=== PATIENT | female | born 1935 | race Caucasian/White ===

== ENCOUNTER 2018-03-25 17:09 | Inpatient (IN) | payer OTHER, BC ==
--- OUTSIDE RECORDS SUMMARY | 2018-03-25 17:12 | XMS REPORT ---
:1935 [facility] Address [address] [place] [id number] Care Team Providers Name Role Phone CARMELA, DR ESQUIVEL Unavailable Unavailable LUCIANA, DR DOZIER Unavailable Unavailable Problems This patient has no known problems. Allergies, Adverse Reactions, Alerts This patient has no known allergies or adverse reactions. Medications This patient has no known medications. Results Test Description Test Time Test Comments Text Results Atomic Results Result Comments CBC WITH MORPHOLOGY 2017-01-23 08:25:00 Test Item Value Reference Range Comments WBC (test code=WBC) 6.7 10\S\3/uL 4.5-11.0 RBC (test code=RBC) 4.51 10\S\6/uL 3.80-5.80 HGB (test code=HBG) 11.2 g/dL 12.0-15.5 HCT (test code=HCT) 37.3 % 35.0-44.0 MCV (test code=MCV) 82.7 fL 81.0-99.0 MCH (test code=MCH) 24.8 pg 27.0-31.0 MCHC (test code=MCHC) 30.0 g/dL 32.0-36.0 RDW (test code=RDW) 20.9 % 11.5-14.5 PLT (test code=PLT) 199 10\S\3/uL 130-400 MPV (test code=MPV) 11.3 fL 9.4-12.4 NEUTROP # (test code=NE#) 5.1 10\S\3/uL 1.6-8.0 LYMPH # (test code=LY#) 0.8 10\S\3/uL 1.1-3.5 MONOCYTE # (test code=MO#) 0.7 10\S\3/uL 0.0-1.1 EOSINOPH # (test code=EO#) 0.1 10\S\3/uL 0.0-0.7 BASOPHIL # (test code=BA#) 0.0 10\S\3/uL 0.0-0.3 IG # (test code=IG#) 0.02 10\S\3/uL 0.00-0.06 NRBC # (test code=NRBC#) 0.00 10\S\3/uL 0.00-0.01 NEUTROPH % (test code=NE%) 75.7 % 35.0-73.0 LYMPH % (test code=LY%) 12.4 % 20.0-55.0 MONO % (test code=MO%) 9.7 % 2.5-10.0 EOSINOPH % (test code=EO%) 1.5 % 0.0-5.0 BASOPHIL % (test code=BA%) 0.4 % 0.0-2.0 IG % (test code=IG%) 0.3 % 0.0-0.8 NRBC% (test code=NRBC%) 0.0 % 0.0-0.2 PLT EST (test code=PLTEST) ADEQUATE ADEQUATE PLT MORPH (test code=PLTMOR) NORMAL (1.5-3 um) NORMAL ANISO (test code=ANISO) 1+ NONE HYPOCHROM (test code=HYPOC) 1+ NONE POLYCHROM (test code=POLY) 1+ NONE OVALOCYTES (test code=OVA) 2+ NONE U/S VENOUS DOPPLER LT UPPER [id number] 12:50:54Left upper extremity venous DopplerLocation code: [id number] history: Swelling, rule out DVTTechnique: Grayscale, color, and duplex spectral analysis sonography of thedeep veins of the left upper extremity was performed. Findings: Normal color-flow and Doppler signal is present within the leftjugular,subclavian, axillary, brachial, basilic , cephalic, radial, and ulnarveins.Impression: Negative for left upper extremity DVT.VALPROIC ACID (DEPAKENE)2017-01-20 21:43:00 Test Item Value Reference Range Comments VALP ACID (test code=95A) 65.0 ug/mL 50.0-100.0 POTASSIUM [id number] 06:07:00 Test Item Value Reference Range Comments POTASSIUM (test code=01B) 4.9 mmol/L 3.6-5.1 XR CHEST 1 [id number] 12:13:41Portable AP chest, 1 viewLocation Code: [id number] HISTORY: COPD exacerbationCOMPARISON: 12/30/2016COMMENT: The lungs are clear and well inflated. The costophrenic angles are sharp. Thecardiomediastinalsilhouette is stable. Left chest pacer/AICD remains.. Thebones are intact.IMPRESSION: Stable cardiomegaly with otherwise no acute abnormality.BASIC METABOLIC [id number] 06:00:00 Test Item Value Reference Range Comments GLUCOSE (test code=06D) 127 mg/dL 75-100 SODIUM (test code=01A) 144 mmol/L 136-145 POTASSIUM (test code=01B) 4.5 mmol/L 3.6-5.1 CHLORIDE (test code=04A) 105 mmol/L 98-107 CO2 (test code=02A) 30 mmol/L 22-32 ANION GAP (test code=ANG) 13.5 mmol/L BUN (test code=05D) 21 mg/dL 7-18 CREATININE (test code=03E) 0.8 mg/dL 0.4-1.1 BUN/CREA R (test code=BCR) 28 12-20 CALCIUM (test code=09D) 8.6 mg/dL 8.3-9.5 [id number] 05:54:00 Test Item Value Reference Range Comments MAGNESIUM (test code=48A) 2.4 mg/dL 1.8-2.4 HEMOGRAM (CBC WITHOUT DIFFERENTIAL)2017-01-10 05:40:00 Test Item Value Reference Range Comments WBC (test code=WBC) 5.9 10\S\3/uL 4.5-11.0 RBC (test code=RBC) 4.84 10\S\6/uL 3.80-5.80 HGB (test code=HBG) 11.6 g/dL 12.0-15.5 HCT (test code=HCT) 38.9 % 35.0-44.0 MCV (test code=MCV) 80.4 fL 81.0-99.0 MCH (test code=MCH) 24.0 pg 27.0-31.0 MCHC (test code=MCHC) 29.8 g/dL 32.0-36.0 RDW (test code=RDW) 20.4 % 11.5-14.5 PLT (test code=PLT) 352 10\S\3/uL 130-400 MPV (test code=MPV) 10.5 fL 9.4-12.4 BASIC METABOLIC [id number] 05:50:00 Test Item Value Reference Range Comments GLUCOSE (test code=06D) 94 mg/dL 75-100 SODIUM (test code=01A) 146 mmol/L 136-145 POTASSIUM (test code=01B) 4.1 mmol/L 3.6-5.1 CHLORIDE (test code=04A) 108 mmol/L 98-107 CO2 (test code=02A) 32 mmol/L 22-32 ANION GAP (test code=ANG) 10.1 mmol/L BUN (test code=05D) 17 mg/dL 7-18 CREATININE (test code=03E) 0.7 mg/dL 0.4-1.1 BUN/CREA R (test code=BCR) 26 12-20 CALCIUM (test code=09D) 8.2 mg/dL 8.3-9.5 VALPROIC ACID (DEPAKENE)2017-01-04 07:19:00 Test Item Value Reference Range Comments VALP ACID (test code=95A) 62.0 ug/mL 50.0-100.0 BASIC METABOLIC [id number] 07:16:00 Test Item Value Reference Range Comments GLUCOSE (test code=06D) 90 mg/dL 75-100 SODIUM (test code=01A) 145 mmol/L 136-145 POTASSIUM (test code=01B) 3.8 mmol/L 3.6-5.1 CHLORIDE (test code=04A) 107 mmol/L 98-107 CO2 (test code=02A) 33 mmol/L 22-32 ANION GAP (test code=ANG) 8.8 mmol/L BUN (test code=05D) 23 mg/dL 7-18 CREATININE (test code=03E) 0.7 mg/dL 0.4-1.1 BUN/CREA R (test code=BCR) 31 12-20 CALCIUM (test code=09D) 8.4 mg/dL 8.3-9.[address] [id number] 01:09:54CT CHEST, ABDOMEN, AND PELVIS WITH CONTRAST:After hours services performed at 0001 hours. LOCATION: [id number]: Fall.COMPARISON: None.TECHNIQUE: Volumetric CT acquisition of the chest, abdomen, and pelvis afterintravenous administration of 100 mL Omnipaque 300. Axial images werereconstructed. One or more of the following radiation dose reduction techniqueswas used: automated exposure control, adjustment of the mA and/or kV accordingto patient size, and/or utilization of iterative reconstruction technique.FINDINGS:The central airways are patent. Parenchymal bands at both lung bases likelyrepresent subsegmental atelectasis or scarring. The lungs are otherwise clear.There is no pneumothorax.There is no axillary, mediastinal, or hilar adenopathy. There is apacemaker/AICD generator pack in the leftanterior chest wall, with its leadsterminating in the right atrium and right ventricle. The heart isenlarged. Thethoracic aorta and pulmonary arteries are normal. Acute angulation of themanubrium on sagittal images may represent a nondisplaced fracture or berelated to motion artifact. There is otherwise no focal osseous abnormality inthe chest.Subcentimeter hypodense lesions in the liver are too small to fullycharacterize and do not need follow-up unless clinically indicated.Hypoattenuation along the falciform ligament probably represents focal hepaticsteatosis. A 1.7 cm hypodense lesion in the hepatic dome has discontinuousperipheral nodular enhancement and is consistent with a hemangioma. A 3 mmhyperdense or enhancing lesion in the right hepatic lobe may represent a flashfilling hemangioma. The liver is otherwise normal. The gallbladder is absent.The pancreas, spleen, and adrenal glands are normal. An area of cortical scarring is present in the left kidney. The kidneysotherwise enhance symmetrically. Bilateral renal cysts measure up to 3.6 cm.There is no hydronephrosis or hydroureter. The bladder is normal. The uterus isabsent. The ovaries are not visualized. A moderate-sized hiatal herniaispresent. The small bowel is normal. The appendix is not visualized. Diverticulaare scattered throughout the colon. There is no associated colonic wallthickening or pericolonic fat stranding to suggest diverticulitis.There is no lymphadenopathy, free air or fluid, or focal osseous abnormality inthe abdomen or pelvis. A focal outpouching in the infrarenal abdominal aortameasuring 7 mm x 18 mm x 14 mmprobably represents a penetratingatherosclerotic ulcer. The aorta measures 2.5 cm in caliber at thatlevel.IMPRESSION:CT chest: Irregularity of the manubrium may represent a nondisplaced fractureor be related to motion artifact. Correlate with point tenderness. Otherwise,no acute abnormality in the chest.CT abdomen/pelvis: 1. No acute abnormality in the abdomen or pelvis.2. 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 This exam was performed within 24 hours of the patient's arrival to [facility].LOCATION: [id number]: Alteredmental status after fall.COMPARISON: None.TECHNIQUE: Volumetric CT acquisition of the head and cervical spine withoutcontrast. Axial images were reconstructed. One or more of the followingradiation dose reduction techniques was used: automated exposure control,adjustment of the mA and/or kV according to patient size, and/ or utilization ofiterative reconstruction technique.FINDINGS:Mild periventricular white matter hypoattenuation is nonspecific but likelyrelated to chronic microangiopathic ischemic disease. The velasquez-whitedifferentiation is maintained. The ventricles and sulci are mildly dilated, inkeeping with age- related atrophy. The basal cisterns are preserved. There is noacute intracranial hemorrhage or mass effect. No extra-axial fluid is present.The orbits and globes are normal. The paranasal sinuses are clear. No calvarialabnormalities are present.Evaluation of the cervical spine is limited by motion artifact. The vertebralbody heights and alignment are maintained. No acute fracture is visualized.Mild degenerative changes are present throughout the cervical spine. Visualizedparavertebral soft tissues are normal.IMPRESSION: CT head: No acute intracranial hemorrhage or mass effect.CT cervical spine: Evaluation of the cervical spine is limited by motionartifact. No acute abnormality visualized.CT HEAD W/O [id number] 00:36:51CT HEAD AND CERVICAL SPINE WITHOUT CONTRASTAfter hours services performed at 2358 hours. This exam was performed within 24 hours of the patient's arrival to [facility].LOCATION: [id number]: Alteredmental status after fall.COMPARISON : None.TECHNIQUE: Volumetric CT acquisition of the head and cervical spine withoutcontrast. Axial images were reconstructed. One or more of the followingradiation dose reduction techniques was used: automated exposure control,adjustment of the mA and/or kV according to patient size, and/or utilization ofiterative reconstruction technique.FINDINGS:Mild periventricular white matter hypoattenuation is nonspecific but likelyrelated to chronic microangiopathic ischemic disease. The velasquez-whitedifferentiation is maintained. The ventricles and sulci are mildly dilated, inkeeping with age-related atrophy. The basal cisterns are preserved. There is noacute intracranial hemorrhage or mass effect. No extra-axial fluid is present.The orbits and globes are normal. The paranasal sinuses are clear. No calvarialabnormalities are present.Evaluation of the cervical spine is limited by motion artifact. The vertebralbody heights and alignment are maintained. No acute fracture is visualized.Mild degenerative changes are present throughout the cervical spine. Visualizedparavertebral soft tissues are normal.IMPRESSION:CT head: No acute intracranial hemorrhage or mass effect.CT cervical spine: Evaluation of the cervical spine is limited by motionartifact. No acute abnormality visualized.COMPREHENSIVE METABOLIC [id number] 23:50:00 Test Item Value Reference Range Comments GLUCOSE (test code=06D) 117 mg/dL 75-100 SODIUM (test code=01A) 145 mmol/L 136-145 POTASSIUM (test code=01B) 4.8 mmol/L 3.6-5.1 CHLORIDE (test code=04A) 105 mmol/L 98-107 CO2 (test code=02A) 31 mmol/L 22-32 ANION GAP (test code=ANG) 13.8 mmol/L BUN (test code=05D) 25 mg/dL 7-18 CREATININE (test code=03E) 0.9 mg/dL 0.4-1.1 BUN/CREA R (test code=BCR) 29 12-20 CALCIUM (test code=09D) 8.5 mg/dL 8.3-9.5 BILI TOTAL (test code=11A) 0.9 mg/dL 0.2-1.0 PROTEIN (test code=07D) 6.0 g/dL 6.4-8.2 ALBUMIN (test code=08D) 3.1 g/dL 3.5-4.8 GLOBULIN (test code=GLB) 2.9 g/dL 1.5-3.8 ALB/GLOB (test code=AGRR) 1.1 1.0-2.6 ALK PHOS (test code=35A) 84 IU/L 42-121 AST (test code=30A) 27 IU/L <=42 ALT (test code=31A) 26 IU/L <=78 CARDIAC [id number] 23:40:00 Test Item Value Reference Range Comments TROPONIN I (test code=A84) 0.022 ng/mL 0.000-0.045 CKMB (test code=A49) 1.2 ng/mL <=3.6 CPK (test code=32A) 124 IU/L 26-192 URINALYSIS WITH [id number] 23:34:00 Test Item Value Reference Range Comments COLOR (test code=COLU) DK YELLOW YELLOW CLARITY (test code=CLA) CLEAR CLEAR GLUCOSE UR (test code=UA GLUCOSE) NEGATIVE NEGATIVE BILI UR (test code=BILE) 1+ NEGATIVE KETONES UR (test code=STACEY) NEGATIVE NEGATIVE SP GRAVITY (test code=SPGR) 1.020 1.005-1.030 PH UR (test code=PH) 6.0 4.5-8.0 PROTEIN UR (test code=PU) NEGATIVE NEGATIVE UROBIL UR (test code=UROQ) 1.0 EU/dL 0.2-1.0 NITRITE UR (test code=NITRITE) NEGATIVE NEGATIVE BLOOD UR (test code=UA BLOOD) NEGATIVE NEGATIVE LEUK ES UR (test code=LEUK) NEGATIVE NEGATIVE WBC UR (test code=UWBC) 0 /HPF 0-5 RBC UR (test code=URBC) 0 /HPF 0-2 EPITH UR (test code=UEPC) FEW /LPF FEW BACTERIA UR (test code=UBACT) NONE /HPF NONE CAST UR (test code=CAST) /LPF NONE CRYSTAL UR (test code=CRYU) / LPF NONE MUCUS UR (test code=MUC) / HPF NONE AMORPH UR (test code=ARNOLDO) FEW / HPF NONE TRICH UR (test code=UTRICH) /HPF NONE YEAST UR (test code=UY) /HPF NONE SPERM UR (test code=USPERM) /HPF NONE PRO TIME AND [id number] 23:23:00 Test Item Value Reference Range Comments PT (test code=TT) 24.3 s 9.8-13.6 INR (test code=INR) 2.1 INRH (test code=INRH) SUGGESTED THERAPEUTIC RANGE FOR INR: 2.5 - 3.5 For Patients with Prosthetic Valves or Patients with recurrent Thromboembolic Events 2.0 - 3.0 For Most Other Applications PTT (test code=PTT) 31.5 s 20.2-38.0 PTTH (test code=PTTH) To monitor the effectiveness of heparin, we offer the Anti-Xa (Heparin Assay). It can be used for either unfractinated or LMW Heparin. Order Code is ANTI-XA CBC (INCLUDES AUTOMATED DIFFERENTIAL)2017-01-03 23:15:00 Test Item Value Reference Range Comments WBC (test code=WBC) 6.2 10\S\3/uL 4.5-11.0 RBC (test code=RBC) 4.84 10\S\6/uL 3.80-5.80 HGB (test code=HBG) 11.5 g/dL 12.0-15.5 HCT (test code=HCT) 38.9 % 35.0-44.0 MCV (test code=MCV) 80.4 fL 81.0-99.0 MCH (test code=MCH) 23.8 pg 27.0-31.0 MCHC (test code=MCHC) 29.6 g/dL 32.0-36.0 RDW (test code=RDW) 18.9 % 11.5-14.5 PLT (test code=PLT) 242 10\S\3/uL 130-400 MPV (test code=MPV) 11.8 fL 9.4-12.4 NEUTROP # (test code=NE#) 4.5 10\S\3/uL 1.6-8.0 LYMPH # (test code=LY#) 0.8 10\S\3/uL 1.1-3.5 MONOCYTE # (test code=MO#) 0.7 10\S\3/uL 0.0-1.1 EOSINOPH # (test code=EO#) 0.1 10\S\3/uL 0.0-0.7 BASOPHIL # (test code=BA#) 0.0 10\S\3/uL 0.0-0.3 IG # (test code=IG#) 0.05 10\S\3/uL 0.00-0.06 NRBC # (test code=NRBC#) 0.00 10\S\3/uL 0.00-0.01 NEUTROPH % (test code=NE%) 72.7 % 35.0-73.0 LYMPH % (test code=LY%) 13.5 % 20.0-55.0 MONO % (test code=MO%) 10.7 % 2.5-10.0 EOSINOPH % (test code=EO%) 1.8 % 0.0-5.0 BASOPHIL % (test code=BA%) 0.5 % 0.0-2.0 IG % (test code=IG%) 0.8 % 0.0-0.8 NRBC% (test code=NRBC%) 0.0 % 0.0-0.2 MANDIFF (test code=MDIFF) NO NO RBC MORPH (test code=RBCMOR) NORMAL BASIC METABOLIC [id number] 05:53:00 Test Item Value Reference Range Comments GLUCOSE (test code=06D) 101 mg/dL 75-100 SODIUM (test code=01A) 146 mmol/L 136-145 POTASSIUM (test code=01B) 3.9 mmol/L 3.6-5.1 CHLORIDE (test code=04A) 106 mmol/L 98-107 CO2 (test code=02A) 33 mmol/L 22-32 ANION GAP (test code=ANG) 10.9 mmol/L BUN (test code=05D) 21 mg/dL 7-18 CREATININE (test code=03E) 0.8 mg/dL 0.4-1.1 BUN/CREA R (test code=BCR) 28 12-20 CALCIUM (test code=09D) 8.7 mg/dL 8.3-9.5 BASIC METABOLIC [id number] 06:32:00 Test Item Value Reference Range Comments GLUCOSE (test code=06D) 99 mg/dL 75-100 SODIUM (test code=01A) 147 mmol/L 136-145 POTASSIUM (test code=01B) 3.4 mmol/L 3.6-5.1 CHLORIDE (test code=04A) 107 mmol/L 98-107 CO2 (test code=02A) 34 mmol/L 22-32 ANION GAP (test code=ANG) 9.4 mmol/L BUN (test code=05D) 19 mg/dL 7-18 CREATININE (test code=03E) 0.8 mg/dL 0.4-1.1 BUN/CREA R (test code=BCR) 25 12-20 CALCIUM (test code=09D) 8.5 mg/dL 8.3-9.5 BASIC METABOLIC [id number] 06:06:00 Test Item Value Reference Range Comments GLUCOSE (test code=06D) 106 mg/dL 75-100 SODIUM (test code=01A) 147 mmol/L 136-145 POTASSIUM (test code=01B) 3.0 mmol/L 3.6-5.1 CHLORIDE (test code=04A) 106 mmol/L 98-107 CO2 (test code=02A) 35 mmol/L 22-32 ANION GAP (test code=ANG) 9.0 mmol/L BUN (test code=05D) 15 mg/dL 7-18 CREATININE (test code=03E) 0.8 mg/dL 0.4-1.1 BUN/CREA R (test code=BCR) 20 12-20 CALCIUM (test code=09D) 8.5 mg/dL 8.3-9.5 AMMONIA [id number] 04:48:00 Test Item Value Reference Range Comments AMMONIA (test code=54A) <10 umol/L 11-32 BASIC METABOLIC [id number] 04:47:00 Test Item Value Reference Range Comments GLUCOSE (test code=06D) 118 mg/dL 75-100 SODIUM (test code=01A) 146 mmol/L 136-145 POTASSIUM (test code=01B) 3.1 mmol/L 3.6-5.1 CHLORIDE (test code=04A) 105 mmol/L 98-107 CO2 (test code=02A) 33 mmol/L 22-32 ANION GAP (test code=ANG) 11.1 mmol/L BUN (test code=05D) 12 mg/dL 7-18 CREATININE (test code=03E) 0.8 mg/dL 0.4-1.1 BUN/CREA R (test code=BCR) 15 12-20 CALCIUM (test code=09D) 9.0 mg/dL 8.3-9.5 B12 [id number] 08:38:00 Test Item Value Reference Range Comments VIT B12 (test code=A60) 1985.0 pg/mL 180.0-914.0 [id number] 08:38:00 Test Item Value Reference Range Comments FOLATE (test code=A75) 18.9 ng/mL 3.1-17.5 LIPID [id number] 07:54:00 Test Item Value Reference Range Comments CHOLESTROL (test code=44A) 162 mg/dL 140-200 TRIGLYCERI (test code=42B) 120 mg/dL <=149 HDL (test code=83D) 62.0 mg/dL 40.0-60.0 LDL (test code=34B) 87 mg/dL <=99 CHL/HDL (test code=CHR) 2.6 0.0-3.4 [id number] 07:54:00 Test Item Value Reference Range Comments PREALBUMIN (test code=08E) 13 mg/dL 18-38 THYROID PANEL/SCREEN (TSH)2016-12-30 07:47:00 Test Item Value Reference Range Comments TSH (test code=A57) 0.391 uIU/mL 0.358-3.740 [id number] 07:42:00 Test Item Value Reference Range Comments A1C % (test code=HBA) 6.3 % 4.2-6.3 BASIC METABOLIC [id number] 07:37:00 Test Item Value Reference Range Comments GLUCOSE (test code=06D) 141 mg/dL 75-100 SODIUM (test code=01A) 146 mmol/L 136-145 POTASSIUM (test code=01B) 3.8 mmol/L 3.6-5.1 CHLORIDE (test code=04A) 112 mmol/L 98-107 CO2 (test code=02A) 27 mmol/L 22-32 ANION GAP (test code=ANG) 10.8 mmol/L BUN (test code=05D) 11 mg/dL 7-18 CREATININE (test code=03E) 0.6 mg/dL 0.4-1.1 BUN/CREA R (test code=BCR) 18 12-20 CALCIUM (test code=09D) 7.6 mg/dL 8.3-9.5 XR CHEST 1 VIEW [id number] 07:35:04HISTORY: DyspneaAfter hours study done at 6:34 AMLocation code: [id number]: Frontal view of the chest demonstrates mildly enlargedcardiomediastinal silhouette, with central venous congestion. The trachea ismidline. The lungs are clear. There is a mild layering left effusion, withoutpneumothorax. The bones are intact.Left pacer device is intact.IMPRESSION: Cardiomegaly and central venous congestion, with a layering lefteffusion with atelectasis and/or airspace disease.[id number] 07:34:00 Test Item Value Reference Range Comments MAGNESIUM (test code=48A) 2.3 mg/dL 1.8-2.4 PRO TIME AND [id number] 07:30:00 Test Item Value Reference Range Comments PT (test code=TT) 15.7 s 9.8-13.6 INR (test code=INR) 1.4 INRH (test code=INRH) SUGGESTED THERAPEUTIC RANGE FOR INR: 2.5 - 3.5 For Patients with Prosthetic Valves or Patients with recurrent Thromboembolic Events 2.0 - 3.0 For Most Other Applications PTT (test code=PTT) 33.7 s 20.2-38.0 PTTH (test code=PTTH) To monitor the effectiveness of heparin, we offer the Anti-Xa (Heparin Assay). It can be used for either unfractinated or LMW Heparin. Order Code is ANTI-XA CBC (INCLUDES AUTOMATED DIFFERENTIAL)2016-12-30 07:22:00 Test Item Value Reference Range Comments WBC (test code=WBC) 5.1 10\S\3/uL 4.5-11.0 RBC (test code=RBC) 4.41 10\S\6/uL 3.80-5.80 HGB (test code=HBG) 10.6 g/dL 12.0-15.5 HCT (test code=HCT) 35.4 % 35.0-44.0 MCV (test code=MCV) 80.3 fL 81.0-99.0 MCH (test code=MCH) 24.0 pg 27.0-31.0 MCHC (test code=MCHC) 29.9 g/dL 32.0-36.0 RDW (test code=RDW) 17.8 % 11.5-14.5 PLT (test code=PLT) 206 10\S\3/uL 130-400 MPV (test code=MPV) 12.3 fL 9.4-12.4 NEUTROP # (test code=NE#) 4.0 10\S\3/uL 1.6-8.0 LYMPH # (test code=LY#) 0.6 10\S\3/uL 1.1-3.5 MONOCYTE # (test code=MO#) 0.4 10\S\3/uL 0.0-1.1 EOSINOPH # (test code=EO#) 0.1 10\S\3/uL 0.0-0.7 BASOPHIL # (test code=BA#) 0.0 10\S\3/uL 0.0-0.3 IG # (test code=IG#) 0.02 10\S\3/uL 0.00-0.06 NRBC # (test code=NRBC#) 0.00 10\S\3/uL 0.00-0.01 NEUTROPH % (test code=NE%) 77.9 % 35.0-73.0 LYMPH % (test code=LY%) 11.0 % 20.0-55.0 MONO % (test code=MO%) 8.1 % 2.5-10.0 EOSINOPH % (test code=EO%) 2.2 % 0.0-5.0 BASOPHIL % (test code=BA%) 0.4 % 0.0-2.0 IG % (test code=IG%) 0.4 % 0.0-0.8 NRBC% (test code=NRBC%) 0.0 % 0.0-0.2 MANDIFF (test code=MDIFF) NO NO RBC MORPH (test code=RBCMOR) NORMAL
[2018-03-25 17:45] LABS: Absolute Lymphocytes (CBC) 0.6 K/uL (0.7-4.9); Absolute Monocytes 0.6 K/uL (0.1-1.3); Absolute Neutrophil 4.9 K/uL (1.8-8.0); Basophils % 0.4 % (0-1.3); Eosinophils % 0.2 % (0-4.4); Hematocrit 21.9 % (36.0-45.0); Lymphocytes % 9.2 % (15.3-44.8); MCH 25.4 pg (27.0-35.0); MCV 83.6 fL (80-100); MPV 8.4 fL (7.6-11.3); Monocytes % 10.6 % (3.3-12.3); RBC Red Blood Cell Count 2.62 M/uL (3.86-4.86)
[2018-03-25 17:50] LABS: Protime INR 1.08
--- NOTE | 2018-03-25 18:02 | RAD REPORT ---
EXAM DESCRIPTION: RAD - Chest Single View - 03/25/2018 5:36 pm CLINICAL HISTORY: Altered mental status, GI bleed COMPARISON: December 2016 TECHNIQUE: AP portable chest image was obtained 1725 hours . FINDINGS: Interstitial markings are prominent but not clearly different. No superimposed failure, in filtrate or mass suspected. Heart size is within normal limits, decreased slightly from the compariso n. Trachea is midline. Defibrillator remains in place. Left costophrenic angle blunting and fluid are less prominent. No pneumothorax. No gross bony abnormality seen. No acute aortic findings suspected. IMPRESSION: Chronic interstitial lung disease with no superimposed failure, infiltrate or mass. Minimal left costophrenic angle blunting with decreased left base opacification compared to December 7.
[2018-03-25 18:06] LABS: Albumin 3.1 g/dL (3.2-5.5); Bilirubin Direct 0.1 mg/dL (0-0.2); Bilirubin Total 0.5 mg/dL (0.3-1.2); Magnesium 2.4 mg/dL (1.8-2.5)
[2018-03-25 18:08] LABS: CKMB Creatine Kinase MB 1.8 ng/ml (0.3-4.0)
[2018-03-25 18:10] LABS: Platelet Estimate ADEQ; Toxic Granulation PRESENT
[2018-03-25 18:11] LABS: Anisocytosis 1+; Blood Morphology Comment NOTED (NOT SEEN); Hypochromasia 1+
--- NOTE | 2018-03-25 18:11 | RAD REPORT ---
EXAM DESCRIPTION: CT - Head Brain Wo Cont - 03/25/2018 6:01 pm CLINICAL HISTORY: Confused;Declining state COMPARISON: CT; Head Brain Wo Cont 12/27/2016 . TECHNIQUE: Axial 5 mm thick images of the head were obtained without IV contrast. All CT scans are performed using dose optimization technique as appropriate and may include automated exposure control or mA/KV adjustment according to patient size. FINDINGS: No intracranial hemorrhage, mass, edema or shift of mid-line structures. No acute infarcti on changes seen. Moderate atrophy and chronic ischemic changes are present. Ventricular size is in p roportion to volume loss. No abnormal extra-axial fluid collections. Mastoid air cells and visualized portions of the paranasal sinuses are clear. No acute bony findings. IMPRESSION: Moderate atrophy and chronic ischemic changes are present. Ventricular size is in propo rtion to volume loss. No acute finding. No significant change from comparison.
[2018-03-25] MEDS ORDERED: PANTOPRAZOLE 40 MG INJ ONE (18:17)
--- NOTE | 2018-03-25 19:16 | ER ---
Nurse's Notes [facility] Name: Ro Mccoy Age: 82 yrs Sex: Female : 1935 Arrival Date: 03/25/2018 Time: 17:13 Bed 24 Private MD: Diagnosis: Anemia, unspecified;GI Bleed, Hypochloremia, hypokalemia, Presentation: 03/25 17:13 Presenting complaint: EMS states: Patient had labwork drawn by facility and results kr2 showed a low H\T\H of 6.5. Transition of care: patient was received from another setting of care (long-term care facility). Onset of symptoms was March 25, 2018. Risk Assessment: Do you want to hurt yourself or someone else? Patient reports no desire to harm self or others. Initial Sepsis Screen: Does the patient meet any 2 criteria? No. Patient's initial sepsis screen is negative. Does the patient have a suspected source of infection? No. Patient's initial sepsis screen is negative. 17:13 Method Of Arrival: EMS: [facility] kr2 17:13 Acuity: MARIXA 3 kr2 17:17 Care prior to arrival: None. kr2 Triage Assessment: 17:17 General: Appears in no apparent distress. comfortable, well groomed, well developed, kr2 well nourished, Behavior is calm, cooperative. Pain: Denies pain. Historical: - Allergies: 17:31 Codeine; kr2 17:31 Morphine; kr2 - Home Meds: 17:31 potassium chloride 20 mEq Oral TbER 1 tab 3 times per day [Active]; sertraline 100 mg kr2 oral tab [Active]; tramadol 50 mg Oral tab 1 tab every 6 hours [Active]; trazodone 50 mg Oral tab 1 tab nightly [Active]; acetaminophen 325 mg Oral tab 2 tabs twice a day [Active]; Xarelto 20 mg Oral tab 1 tab once daily [Active]; ellipta aerosol powder 62.5mcg 1 inhalation once a day [Active]; DuoNeb 0.5 mg-3 mg(2.5 mg base)/3 mL Inhl nebu [Active]; losartan 25 mg oral tab [Active]; meclizine 12.5 mg Oral tab once daily [Active]; Melatonin 6mg Oral daily [Active]; metolazone 5 mg oral tab 1 tab once daily [Active]; Nitroglycerin Oral [Active]; omeprazole 20 mg Oral cpDR 1 cap once daily [Active]; carvedilol 25 mg Oral tab 1 tab 2 times per day [Active]; clonazepam 0.25 mg Oral TbDL 1 tab nightly [Active]; Depakote Sprinkles 125 mg Oral cpSP 4 caps every 12 hours [Active]; Exelon 9.5 mg/24 hr transdermal pt24 1 patch once daily [Active]; gabapentin 100 mg Oral cap 2 caps 3 times per day [Active]; Marcelle-Lanta 200-200-20 mg/5 mL oral susp 20 mL every 8 hours as needed for Heartburn [Active]; Marcelle-Tussin 100 mg/5 mL oral liqd 10 mL every 4 hours [Active]; Imodium A-D 2 mg oral tab [Active]; - PMHx: 17:39 Hyperlipidemia; COPD; GERD; insomnia; kr2 - PSHx: 17:33 Hysterectomy; Knee surgery; kr2 - Immunization history:: Adult Immunizations unknown. - Social history:: Smoking status: unknown. - Ebola Screening: : No symptoms or risks identified at this time. Screenin:16 Abuse screen: Denies threats or abuse. Denies injuries from another. Nutritional kr2 screening: No deficits noted. Tuberculosis screening: No symptoms or risk factors identified. Fall Risk Fall in past 12 months (25 points). IV access (20 points). Assessment: 18:00 Reassessment: Patient appears in no apparent distress at this time. Patient and/or kr2 family updated on plan of care and expected duration. Pain level reassessed. Patient is alert, oriented x 3, equal unlabored respirations, skin warm/dry/pink. Incontinence care provided, black tarry stool Patient denies pain at this time. 19:00 Reassessment: Patient appears in no apparent distress at this time. Patient and/or kr2 family updated on plan of care and expected duration. Pain level reassessed. Patient is alert, oriented x 3, equal unlabored respirations, skin warm/dry/pink. Patient denies pain at this time. 20:30 Reassessment: Patient appears in no apparent distress at this time. Patient and/or kr2 family updated on plan of care and expected duration. Pain level reassessed. Patient is alert, oriented x 3, equal unlabored respirations, skin warm/dry/pink. Cleaned of incontinence, black tarry stool. Vital Signs: 17:47 BP 125 / 86; Pulse 84; Resp 17; Pulse Ox 97% on 3 lpm NC; kr2 18:30 BP 118 / 74; Pulse 82; Resp 17; Pulse Ox 97% on 3 lpm NC; kr2 19:30 BP 122 / 80; Pulse 90; Resp 18; Pulse Ox 97% on 3 lpm NC; kr2 20:30 BP 110 / 66; Pulse 88; Resp 20; Pulse Ox 97% on 3 lpm NC; kr2 ED Course: 17:13 Patient arrived in ED. kr2 17:15 Ward Barnes MD is Attending Physician. kdr 17:15 Triage completed. kr2 17:16 Susana Rdz, ROSALVA is Primary Nurse. kr2 17:17 Arm band placed on. kr2 17:22 Inserted saline lock: 20 gauge in left wrist, using aseptic technique. Blood collected. em1 17:35 X-ray completed. Portable x-ray completed in exam room. Patient tolerated procedure ml well. 17:36 XRAY Chest (1 view) In Process Unspecified. EDMS 17:39 Patient has correct armband on for positive identification. Bed in low position. Call kr2 light in reach. Side rails up X2. lunchroom monitor on. Pulse ox on. NIBP on. Door closed. Warm blanket given. Head of bed elevated. 17:45 EKG done, by solar panel technician. reviewed by Ward Barnes MD. sm3 17:46 No provider procedures requiring assistance completed. kr2 18:02 CT Head Brain wo Cont In Process Unspecified. EDMS 19:14 Damien Laureano MD is Hospitalizing Provider. kdr 20:30 Patient admitted, IV remains in place. kr2 Administered Medications: 18:15 Drug: ProTONIX 40 mg Route: IVP; Site: left hand; kr2 19:00 Follow up: Response: No adverse reaction kr2 19:40 Drug: NS 0.9% 500 ml Route: IV; Rate: bolus; Site: left hand; kr2 20:30 Follow up: Response: No adverse reaction; IV Status: Completed infusion kr2 19:40 Drug: Potassium Chloride 20 mEq Route: IV; Rate: calculated rate; Site: left hand; kr2 20:30 Follow up: Response: No adverse reaction; IV Status: Infusion continued upon admission kr2 Outcome: 19:15 Decision to Hospitalize by Provider. kdr 20:30 Admitted to Tele accompanied by tech, family with patient, via stretcher, room 206, kr2 with oxygen, with chart, Report called to ROSALVA Miles. Transfusion sheets and orders went with patient 20:30 Condition: stable 20:30 Instructed on the need for admit, Demonstrated understanding of instructions. 20:47 Patient left the ED. kr2 Signatures: Dispatcher [employer] EDMS Ward Barnes MD MD kdr Olu, [facility] em1 Susana Rdz RN RN kr2 Enriqueta Workman 3 Corrections: (The following items were deleted from the chart) 20:36 17:47 BP 125 / 86; Pulse 84bpm; Resp 17bpm; Pulse Ox 97% RA; kr2 kr2
--- NOTE | 2018-03-25 19:17 | EDPHYS ---
Physician Documentation [facility] Name: Ro Mccoy Age: 82 yrs Sex: Female : 1935 Arrival Date: 03/25/2018 Time: 17:13 Bed 24 Private MD: ED Physician Ward Barnes HPI: 03/25 23:46 This 82 yrs old Female presents to ER via EMS with complaints of Abnormal Lab kdr Results. 23:46 [facility] H[facility]. Onset: The symptoms/episode began/occurred kdr at an unknown time. Severity of symptoms: At their worst the symptoms were moderate in the emergency department the symptoms are unchanged. It is unknown whether or not the patient has had similar symptoms in the past. It is unknown whether or not the patient has recently seen a physician. The patient is unable to give any history and seems confused. Historical: - Allergies: 17:31 Codeine; kr2 17:31 Morphine; kr2 - Home Meds: 17:31 potassium chloride 20 mEq Oral TbER 1 tab 3 times per day [Active]; sertraline 100 mg kr2 oral tab [Active]; tramadol 50 mg Oral tab 1 tab every 6 hours [Active]; trazodone 50 mg Oral tab 1 tab nightly [Active]; acetaminophen 325 mg Oral tab 2 tabs twice a day [Active]; Xarelto 20 mg Oral tab 1 tab once daily [Active]; ellipta aerosol powder 62.5mcg 1 inhalation once a day [Active]; DuoNeb 0.5 mg-3 mg(2.5 mg base)/3 mL Inhl nebu [Active]; losartan 25 mg oral tab [Active]; meclizine 12.5 mg Oral tab once daily [Active]; Melatonin 6mg Oral daily [Active]; metolazone 5 mg oral tab 1 tab once daily [Active]; Nitroglycerin Oral [Active]; omeprazole 20 mg Oral cpDR 1 cap once daily [Active]; carvedilol 25 mg Oral tab 1 tab 2 times per day [Active]; clonazepam 0.25 mg Oral TbDL 1 tab nightly [Active]; Depakote Sprinkles 125 mg Oral cpSP 4 caps every 12 hours [Active]; Exelon 9.5 mg/24 hr transdermal pt24 1 patch once daily [Active]; gabapentin 100 mg Oral cap 2 caps 3 times per day [Active]; Marcelle-Lanta 200-200-20 mg/5 mL oral susp 20 mL every 8 hours as needed for Heartburn [Active]; Marcelle-Tussin 100 mg/5 mL oral liqd 10 mL every 4 hours [Active]; Imodium A-D 2 mg oral tab [Active]; - PMHx: 17:39 Hyperlipidemia; COPD; GERD; insomnia; kr2 - PSHx: 17:33 Hysterectomy; Knee surgery; kr2 - Immunization history:: Adult Immunizations unknown. - Social history:: Smoking status: unknown. - Ebola Screening: : No symptoms or risks identified at this time. ROS: 23:46 Constitutional: Unable to obtain kdr 23:46 Unable to obtain ROS due to altered mental status. Exam: 23:46 Constitutional: This is a well developed, well nourished obese patient who is awake, kdr poorly alert, and in no acute distress. She is currently poorly communicative - normally per daughter, she is able to converese normally Head/Face: Normocephalic, atraumatic. Eyes: Pupils equal round and reactive to light, extra-ocular motions intact. Lids and lashes normal. Conjunctiva and sclera are non-icteric and not injected. Cornea within normal limits. Periorbital areas with no swelling, redness, or edema. Neck: Trachea midline, no thyromegaly or masses palpated, and no cervical lymphadenopathy. Supple, full range of motion without nuchal rigidity, or vertebral point tenderness. No Meningismus. Chest/axilla: Normal chest wall appearance and motion. Nontender with no deformity. No lesions are appreciated. Cardiovascular: Regular rate and rhythm with a normal S1 and S2. No gallops, murmurs, or rubs. Normal PMI, no JVD. No pulse deficits. Respiratory: Lungs have equal breath sounds bilaterally, clear to auscultation and percussion. No rales, rhonchi or wheezes noted. No increased work of breathing, no retractions or nasal flaring. Abdomen/GI: Soft, non-tender, with normal bowel sounds. Obese but no distension or tympany. No guarding or rebound.. Back: No spinal tenderness. No costovertebral tenderness. Full range of motion. Skin: Warm, dry with normal turgor. Normal color with no rashes, no lesions, and no evidence of cellulitis. MS/ Extremity: Pulses equal, no cyanosis. Neurovascular intact. Full, normal range of motion. 23:46 Abdomen/GI: Inspection: obese Bowel sounds: active, diminished, in all quadrants, Palpation: soft, nontender, in all quadrants, Rectal exam: rectal tone normal, Stool: guaiac positive, black, soft, the exam is chaperoned by the nurse. Vital Signs: 17:47 BP 125 / 86; Pulse 84; Resp 17; Pulse Ox 97% on 3 lpm NC; kr2 18:30 BP 118 / 74; Pulse 82; Resp 17; Pulse Ox 97% on 3 lpm NC; kr2 19:30 BP 122 / 80; Pulse 90; Resp 18; Pulse Ox 97% on 3 lpm NC; kr2 20:30 BP 110 / 66; Pulse 88; Resp 20; Pulse Ox 97% on 3 lpm NC; kr2 MDM: 19:15 Patient medically screened. kdr 23:50 Data reviewed: vital signs, nurses notes, lab test result(s), radiologic studies. kdr Counseling: I had a detailed discussion with the patient and/or guardian regarding: the historical points, exam findings, and any diagnostic results supporting the discharge/admit diagnosis, the need for further work-up and treatment in the hospital. Physician consultation: Damien Laureano MD regarding admission, patient's condition, and will see patient in ED, shortly. 03/25 17:26 Order name: Basic Metabolic Panel; Complete Time: 18:42 [facility] 03/25 17:26 Order name: BNP; Complete Time: 18:42 [facility] 03/25 17:26 Order name: CBC with Diff; Complete Time: 18:42 [facility] 03/25 17:26 Order name: Ckmb; Complete Time: 18:42 [facility] 03/25 17:26 Order name: CPK; Complete Time: 18:42 [facility] 03/25 17:26 Order name: LFT's; Complete Time: 18:42 [facility] 03/25 17:26 Order name: Magnesium; Complete Time: 18:42 [facility] 03/25 17:26 Order name: PT-INR; Complete Time: 18:42 [facility] 03/25 17:26 Order name: Ptt, Activated; Complete Time: 18:42 [facility] 03/25 17:26 Order name: Troponin (emerg Dept Use Only); Complete Time: 18:42 kdr 03/25 17:26 Order name: Type And Screen kdr 03/25 17:29 Order name: Guiac; Complete Time: 18:42 ag 03/25 17:49 Order name: Manual Differential; Complete Time: 18:42 EDMS 03/25 17:26 Order name: XRAY Chest (1 view); Complete Time: 18:42 kdr 03/25 17:26 Order name: EKG; Complete Time: 17:26 kdr 03/25 17:26 Order name: Cardiac monitoring; Complete Time: 19:41 kdr 03/25 17:26 Order name: EKG - Nurse/Tech; Complete Time: 19:41 kdr 03/25 17:26 Order name: IV Saline Lock; Complete Time: 19:41 kdr 03/25 17:26 Order name: Labs collected and sent; Complete Time: 19:41 kdr 03/25 17:26 Order name: O2 Per Protocol; Complete Time: 19:41 kdr 03/25 17:26 Order name: O2 Sat Monitoring; Complete Time: 19:42 kdr 03/25 17:26 Order name: CT Head Brain wo Cont; Complete Time: 18:42 kdr 03/25 18:45 Order name: CT Abd/Pelvis - Without Cont kdr 03/25 19:16 Order name: ABO/RH no charge EDMS 03/25 19:38 Order name: CT EDMS Administered Medications: 18:15 Drug: ProTONIX 40 mg Route: IVP; Site: left hand; kr2 19:00 Follow up: Response: No adverse reaction kr2 19:40 Drug: NS 0.9% 500 ml Route: IV; Rate: bolus; Site: left hand; kr2 20:30 Follow up: Response: No adverse reaction; IV Status: Completed infusion kr2 19:40 Drug: Potassium Chloride 20 mEq Route: IV; Rate: calculated rate; Site: left hand; kr2 20:30 Follow up: Response: No adverse reaction; IV Status: Infusion continued upon admission kr2 Disposition: 03/25/18 19:15 Hospitalization ordered by Damien Laureano for Inpatient Admission. Preliminary diagnosis are Anemia, unspecified, GI Bleed, Hypochloremia, hypokalemia,. - Bed requested for Telemetry/MedSurg (Inpatient). - Status is Inpatient Admission. kr2 - Condition is Fair. - Problem is new. - Symptoms are unchanged. UTI on Admission? No Signatures: Dispatcher [employer] EDJoy Marcos RN RN dw Ward Barnes MD MD [facility] Susana Rdz RN RN kr2 Corrections: (The following items were deleted from the chart) 19:25 19:15 Hospitalization Ordered by Damien Laureano MD for Inpatient Admission. Preliminary dw diagnosis is Anemia, unspecified; GI Bleed, Hypochloremia, hypokalemia,. Bed requested for Telemetry/MedSurg (Inpatient). Status is Inpatient Admission. Condition is Fair. Problem is new. Symptoms are unchanged. UTI on Admission? No. kdr 20:47 19:25 03/25/2018 19:15 Hospitalization Ordered by Damien Laureano MD for Inpatient kr2 Admission. Preliminary diagnosis is Anemia, unspecified; GI Bleed, Hypochloremia, hypokalemia,. Bed requested for Telemetry/MedSurg (Inpatient). Status is Inpatient Admission. Condition is Fair. Problem is new. Symptoms are unchanged. UTI on Admission? No. dw
[2018-03-25] MEDS ORDERED: NA CHLORIDE 0.9% 1,000 ML ONE (19:32)
[2018-03-25] MEDS ORDERED: KCL 20 MEQ/100 mL IVPB 20 MEQ/100 ML BAG IV ONE (19:32)
--- NOTE | 2018-03-25 19:37 | RAD REPORT ---
EXAM DESCRIPTION: CT - Abdomen Pelvis Wo Contrast - 03/25/2018 7:23 pm CLINICAL HISTORY: Suspected GI bleed , abnormally low hemoglobin COMPARISON: None. TECHNIQUE: Axial [address] imaging of the abdomen and pelvis was performed without IV contrast. No IV contrast was given because of allergy, abnormal renal function, patient refusal or physician re quest. No oral contrast was given. All CT scans are performed using dose optimization technique as appropriate and may include automated exposure control or mA/KV adjustment according to patient size. FINDINGS: No suspicious findings in the lung bases. Mild cardiomegaly without pericardial effusion. The liver, spleen and pancreas show no suspicious findings on non-contrast imaging. Cholecystectomy c lips are present. No biliary tree dilatation. No hydronephrosis or suspicious renal mass. A 3 centimeter low-attenuation mass posterior right kidne y is almost certainly an incidental cyst. No significant adrenal finding. Isodense renal masses and p yelonephritis cannot be excluded in the absence of IV contrast. The urinary bladder is without signif icant finding. No gastric dilatation or gastric wall thickening. No mass suspected. Gastric assessment is limited. T here is no fluid, air or contrast in the lumen. Rectum is dilated by stool. Rectal wall is mildly pro minent. No perirectal congestion or edema. No hernia, mass or bulky lymphadenopathy. No free air or f ree fluid. No peritoneal or retroperitoneal hemorrhage. No hematoma in the abdominal wall or elsewher e in the soft tissues. Prominent disc and bony degenerative changes are present. IMPRESSION: Circumferential mild wall thickening of the rectum with the rectum dilated by stool. A d iscrete mass is not seen. No edema or stranding in the perirectal fat. No other acute GI finding to indicate a source for blood loss. No hematoma other mass lesion. Full assessment is limited is the absence of IV contrast.
[2018-03-25] MEDS ORDERED: ONDANSETRON 4 MG/2 ML VIAL IV PRN (20:49)
[2018-03-25] MEDS ORDERED: ACETAMINOPHEN 500 MG TAB PO PRN (20:49)
[2018-03-25] MEDS ORDERED: GLUCAGON 1 MG/VIAL IM PRN (20:49)
[2018-03-25] MEDS ORDERED: HYDROCORTISONE SUC 100 MG INJ IV ONE (20:49)
[2018-03-25] MEDS ORDERED: NA CHLORIDE 0.9% 250 ML IV SCH (20:49)
[2018-03-25] MEDS: NA CHLORIDE 0.9% 1,000 ML IV SCH (20:49)
[2018-03-25] MEDS ORDERED: D50W 25 GM/50 ML SYRINGE IV PRN (20:49)
[2018-03-25] MEDS ORDERED: FUROSEMIDE 20 MG/ 2ML VIAL IV ONE (20:49)
[2018-03-25] MEDS ORDERED: DIPHENHYDRAMINE 50 MG/ML VIAL IV ONE (20:49)
[2018-03-25] MEDS ORDERED: INSULIN -REGULAR HUMAN 50 UNIT/0.5 ML ML SQ SCH (21:00)
[2018-03-25] MEDS ORDERED: NA CHLORIDE 0.9% 250 ML ONE (22:28)
[2018-03-25 22:40] VITALS: BMI 31.6
[2018-03-26 04:46] VITALS: O2SAT 100
--- NOTE | 2018-03-26 05:34 | EKG ---
Test Date: 2018-03-25 Test Time: 17:38:02 [employer] Administrator: JAQUELINE MEASUREMENT RESULTS: Intervals: Rate: 86 [place]: QRSD: 130 QT: 438 QTc: 524 [place]: P: WA: QRS: 47 T: 241 INTERPRETIVE STATEMENTS: Atrial fibrillation with premature ventricular or aberrantly conducted complexes Right bundle branch block Marked T wave abnormality, consider inferolateral ischemia Abnormal ECG Compared to ECG 07/28/2017 10:07:58 T-wave abnormality now present Possible ischemia now present Ventricular-paced complex(es) or rhythm no longer present Uncertain supraventricular rhythm no longer present Fusion complex(es) no longer present Left ventricular hypertrophy no longer present Early repolarization no longer present Myocardial infarct finding no longer present Electronically Signed On 03-26-18 05:33:18 CDT by Jon Nation
[2018-03-26] MEDS ORDERED: SODIUM CHLORIDE 0.9% 10ML INJ IV PRN (05:40)
--- NOTE | 2018-03-26 05:41 | P.HP ---
Certification for Inpatient Patient admitted to: Inpatient With expected LOS: >2 Midnights Practitioner: I am a practitioner with admitting privileges, knowledge of patient current condition, hospital course, and medical plan of care. Services: Services provided to patient in accordance with Admission requirements found in Title 42 Section 412.3 of the Code of Federal Regulations Patient History Date of Service: 03/25/18 Reason for admission: anemia History of Present Illness: Ms Mccoy is an 82 years old woman with history of A.Fib anticoagulated with xarelto, who lives in a [facility]p. According to SNF staff, the patient start to decline her condition about 1 week ago. She become pale, weak and had episodes of confusion. She had a lab work done, and it was remarkable for anemia. Then she was transferred to ED for evaluation. There were no reported episode of bloody vomiting or stools. In the hospital, she had dark stools and guaiac was positive. Lab work was remarkable for Hgb 6.7 mg/dl, BUN 96. CT abd/ pelvis shows rectum dilated with stools but not signs if infection. CT head showed no acute abnormalities. Allergies codeine Adverse Reaction (Mild, Verified 12/27/16 20:46) Nausea/Vomiting morphine Adverse Reaction (Verified 12/27/16 20:46) agitated Home Medications: Rivaroxaban [Xarelto*] 20 mg PO 1700 05/06/16 Acetaminophen [Tylenol] 650 mg PO BID 03/25/18 Amlodipine Besylate [Norvasc] 5 mg PO DAILY 03/25/18 Amoxicillin 500 mg PO Q12H 03/25/18 Bumetanide [Bumex] 2 mg PO TID 03/25/18 Carvedilol [Coreg] 25 mg PO BID 03/25/18 Divalproex [Depakote Sprinkle] 4 cap PO DAILY 03/25/18 Gabapentin [Neurontin] 200 mg PO TID 03/25/18 Guaifenesin [Marcelle-Tussin] 10 ml PO Q4HP PRN 03/25/18 Ipratropium/Albuterol Sulfate [Iprat-Albut 0.5-3(2.5) mg/3 ml] 3 ml IH Q6HP PRN 03/25/18 Loperamide HCl [Imodium A-D] 2 mg PO SEECOM PRN 03/25/18 Losartan Potassium 25 mg PO DAILY 03/25/18 Mag Hydrox/Aluminum Hyd/Simeth [Antacid Suspension] 20 ml PO Q8HP PRN 03/25/18 Magnesium Hydroxide [Milk of Magnesia] 30 ml PO DAILYPRN PRN 03/25/18 Meclizine HCl [Antivert] 12.5 mg PO DAILYPRN PRN 03/25/18 Melatonin [Melatonin*] 6 mg PO BEDTIME 03/25/18 Nitroglycerin [Nitrostat] 0.4 mg SL Q5MX3 PRN 03/25/18 Omeprazole 40 mg PO DAILY 03/25/18 Phenyleph/Pramoxin/Glycr/W.pet [Preparation H Cream] 1 appl RC BID 03/25/18 Phenylephrine HCl/[place] Butter [Preparation H Suppository] 1 each RC Q12HP PRN 03/25/18 Polyvinyl Alcohol [Liquitears] 1 drop OP BID 03/25/18 Potassium Chloride 20 meq PO TID 03/25/18 Rivastigmine Patch [Exelon 4.6 mg Patch] 1 each TD DAILY 03/25/18 Sertraline HCl 100 mg PO DAILY 03/25/18 Tramadol HCl [Ultram] 50 mg PO Q6HP PRN 03/25/18 Umeclidinium [place] [Incruse Ellipta] 1 puff IH DAILY 03/25/18 clonazePAM [Klonopin Rapdis Tab] 0.25 mg PO BEDTIME 03/25/18 metOLazone [Metolazone] 5 mg PO DAILY 03/25/18 - Past Medical/Surgical History Has patient received pneumonia vaccine in the past: Yes Diabetic: No -: TIA -: HTN -: AFIB diagnosed 6 months ago -: high cholestrol -: HYSTERECTOMY -: BILATERAL KNEE REPLACEMENT -: APPENDECTOMY -: TONSILLECTOMY -: CATARACT SX BILATERAL -: PM/DEFIB PLACEMENT -: marie - Family History Brother -: Heart disease, GI disease, Cancer Notes: AAA, GI Cancer Sister -: Heart disease, Hypertension, GI disease - Social History Smoking Status: Former smoker Alcohol use: No CD- Drugs: No Caffeine use: Yes Place of Residence: Custodial Review of Systems 10-point ROS is otherwise unremarkable Physical Examination - Vital Signs Temperature: 98.3 F Blood Pressure: 124/58 Pulse: 74 Respirations: 20 Pulse Ox (%): 100 - Physical Exam General: Alert, In no apparent distress, Confused, Other (pale) HEENT: Atraumatic, PERRLA, Mucous membr. moist/pink, EOMI, Sclerae nonicteric Neck: Supple, 2+ carotid pulse no bruit, No LAD, Without JVD or thyroid abnormality Respiratory: Clear to auscultation bilaterally, Normal air movement Cardiovascular: Normal S1 S2, Irregular heart rate/rhythm Gastrointestinal: Normal bowel sounds, No tenderness Musculoskeletal: No tenderness Integumentary: No rashes Neurological: Normal strength at 5/5 x4 extr, Normal tone, Normal affect Lymphatics: No axilla or inguinal lymphadenopathy - Studies Laboratory Data (last 24 hrs) 03/25/18 17:15: PT 12.7 H, INR 1.08, APTT 23.7 L 03/25/18 17:15: WBC 6.1, Hgb 6.7 L*, Hct 21.9 L, Plt Count 294 03/25/18 17:15: B-Natriuretic Peptide 196 H 03/25/18 17:15: Sodium 136, Potassium 3.0 L, BUN 96 H, Creatinine 1.43 H, Glucose 223 H, Magnesium 2.4, Total Bilirubin 0.5, AST 26, ALT 11, Alkaline Phosphatase 49 Microbiology Data (last 24 hrs): 03/25/18 17:29 Stool Occult Blood - Final Assessment and Plan - Problems (Diagnosis) (1) GIB (gastrointestinal bleeding) Current Visit: Yes Status: Acute Qualifiers: GI bleed type/associated pathology: unspecified gastrointestinal hemorrhage type Qualified Code(s): K92.2 - Gastrointestinal hemorrhage, unspecified (2) Atrial fibrillation Onset Date: 12/29/16 Current Visit: No Status: Acute Qualifiers: Atrial fibrillation type: chronic Qualified Code(s): I48.2 - Chronic atrial fibrillation (3) Dementia Onset Date: 12/29/16 Current Visit: No Status: Acute Qualifiers: Dementia type: unspecified type Dementia behavioral disturbance: without behavioral disturbance Qualified Code(s): F03.90 - Unspecified dementia without behavioral disturbance (4) Anemia due to blood loss, acute Current Visit: Yes Status: Acute - Plan The patient will be admitted to the hospital due to anemia likely secondary to blood loss secondary to GIB. The patient is hemodynamically stable. She has ordered 2 UNITs of PRBC's. She has marked elevated of BUN, with normal MCV. Will keep her NPO, start IV PPI's, consult GI specialist. - Advance Directives Does patient have a Living Will: No Does patient have a Durable POA for Healthcare: No
[2018-03-26] MEDS: INSULIN -REGULAR HUMAN 50 UNIT/0.5 ML ML SQ SCH ×5 (06:00→21:00)
[2018-03-26] MEDS: NA CHLORIDE 0.9% 1,000 ML IV SCH ×2 (08:12→23:22)
[2018-03-26] MEDS: PANTOPRAZOLE 40 MG INJ IVP SCH ×2 (08:13→22:11)
[2018-03-26 08:24] LABS: Albumin 3.1 g/dL (3.2-5.5); Bilirubin Direct 0.2 mg/dL (0-0.2); Protein, Total 5.8 g/dL (6.0-8.3)
[2018-03-26 08:26] LABS: Absolute Lymphocytes (CBC) 0.6 K/uL (0.7-4.9); Absolute Monocytes 0.8 K/uL (0.1-1.3); Absolute Neutrophil 4.8 K/uL (1.8-8.0); Basophils % 0.5 % (0-1.3); Lymphocytes % 9.9 % (15.3-44.8); MCH 27.4 pg (27.0-35.0); MCV 83.2 fL (80-100); MPV 8.4 fL (7.6-11.3); Monocytes % 12.8 % (3.3-12.3); Potassium 2.8 mEq/L (3.6-5.0); RBC Red Blood Cell Count 3.48 M/uL (3.86-4.86)
[2018-03-26] MEDS: KCL 20 MEQ/100 mL IVPB 20 MEQ/100 ML BAG IV SCH ×3 (09:27→13:00)
[2018-03-26] MEDS ORDERED: TRAMADOL HCL 50 MG TAB PO PRN (09:40)
[2018-03-26] MEDS ORDERED: MAGNES/ALUMIN/SIMET 30ML UCUP PO PRN (09:40)
[2018-03-26] MEDS ORDERED: NITROGLYCERIN 0.4 MG/TAB SL PRN (09:40)
[2018-03-26] MEDS ORDERED: MECLIZINE HCL 12.5 MG TAB PO PRN (09:40)
[2018-03-26] MEDS ORDERED: HOME MED 1 EA UNK (Ipratropium/Albuterol Sulfate [Iprat-Albut 0.5-3(2.5) Mg/3 Ml] 3 ML) IH PRN (09:40)
[2018-03-26] MEDS ORDERED: MAGNESIUM HYDROXIDE 8% 30 ML PO PRN (09:40)
[2018-03-26] MEDS ORDERED: guaiFENesin 100 MG/5 ML UCUP PO PRN (09:40)
[2018-03-26 09:41] LABS: A1c Component 0.42 mg/dL; Hemoglobin A1c 6.1 % (4-6.0)
[2018-03-26] MEDS ORDERED: IPRATROPIUM BROM 0.5MG/2.5ML IH PRN (10:07)
[2018-03-26] MEDS ORDERED: ALBUTEROL 2.5 MG/3 ML NEB SOL IH PRN (10:07)
[2018-03-26] MEDS ORDERED: LOPERAMIDE HCL 2 MG CAPSULE PO PRN (10:08)
[2018-03-26 10:13] LABS: Anisocytosis 1+; Blood Morphology Comment NOTED (NOT SEEN); Platelet Estimate ADEQ
[2018-03-26] MEDS: GABAPENTIN 100 MG CAP PO SCH ×2 (11:37→22:09)
[2018-03-26] MEDS: SERTRALINE HCL 100 MG TAB PO SCH (11:38)
[2018-03-26] MEDS: RIVASTIGMINE 4.6 MG/24 HR PATCH TD SCH (11:38)
[2018-03-26] MEDS: BUMETANIDE 1 MG TABLET PO SCH ×2 (14:00→22:10)
--- NOTE | 2018-03-26 15:00 | RAD REPORT ---
EXAM DESCRIPTION: RAD - Barium Swallow Modified - 03/26/2018 2:53 pm CLINICAL HISTORY: Aspiration. COMPARISON: None. TECHNIQUE: The patient was given liquid, semi-solid and solid forms of barium. Lateral view fluorosc opic imaging was performed in conjunction with speech pathology service. FINDINGS: DEEP LARYNGEAL PENETRATION NOT CLEARED WITH NECTAR; ASPIRATION NO COUGH WITH THIN LIQUID; MILD PHARYNGEAL RESIDUE VALLECULAR PYRIFORM POSTERIOR WALL WITH ALL CONSISTENCIES DELAYED SWALLOW REF DARON; REDUCED HYOLARYNGEAL EXCURSION
--- NOTE | 2018-03-26 15:36 | PN ---
Date of Progress Note: 03/26/2018 Subjective: The patient seen and examined, chart reviewed, and case discussed with RN. The patient is an 82-year-old female, who had some episodes of intermittent confusion due to her psych medication s. Family at the bedside. The patient able to follow commands. Does not have any specific complain ts. Denies any pain. Review of Systems: Limited due to the patient's medical condition. Medications: List reviewed. Objective: Vital Signs: Temperature 98.3, heart rate 71, blood pressure 107/53, respirations 18, an d O2 100% on 3 L via nasal cannula. General: Awake, alert, oriented x1, in some mild distress. Elderly female, ill-appearing, obese, BM I 31. CV: S1, S2. Irregularly irregular. Peripheral pulses present. Respiratory: Clear to auscultation bilaterally. No wheezing. No stridor. Gastrointestinal: Abdomen is soft, nontender, nondistended. Positive bowel sounds. Extremities: No clubbing, cyanosis, edema. Neurologic: Nonfocal. Laboratory Data: Sodium 146, potassium 2.8, chloride 94, CO2 39, BUN 79, creatinine 1.25, and glucos e 159. Hemoglobin A1c 6.1%. Calcium 9.1. WBC 6.3, H and H 9.5, 29, platelets 238, and neutrophils 76%. Stool occult blood positive. Assessment And Plan: An 82-year-old female with; 1.Acute gastrointestinal bleed. The patient is on Xarelto. May be upper gastrointestinal source. Dr. Piper with GI has been consulted. We will monitor H and H. The patient has been transfused. We will continue IV PPI. 2.Acute blood loss anemia secondary to above, status post 2 units PRBCs. Monitor H and H, transfuse as needed. 3.Atrial fibrillation, chronic, on anticoagulation, currently held due to gastrointestinal bleed. 4.Alzheimer's dementia without behavioral disturbance. 5.Hyperlipidemia, mixed. 6.History of transient ischemic attack. 7.History of psychosis. The patient is on multiple psychiatric medications including trazodone, ser traline, clonazepam, and Depakote. Has been seen by psychiatrist at the long-term. Plan: 1.EGD in a.m. n.p.o. after midnight. 2.GI and DVT prophylaxis with PPI and SCDs. No chemical anticoagulation due to GI bleed. /GALA Voice ID: [id number] Report ID: [id number]
--- NOTE | 2018-03-26 20:13 | RAD REPORT ---
EXAM DESCRIPTION: CT - Head Brain Wo Cont - 03/26/2018 8:05 pm CLINICAL HISTORY: CVA, TIA COMPARISON: 03/25/2018, 12/27/2016 TECHNIQUE: All CT scans are performed using dose optimization technique as appropriate and may inclu de automated exposure control or mA/KV adjustment according to patient size. FINDINGS: No intracranial hemorrhage, hydrocephalus or extra-axial fluid collection.Moderate general ized brain atrophy is present with mild periventricular and deep white matter chronic microvascular i schemic changes.No areas of brain edema or evidence of midline shift. The paranasal sinuses and mastoids are clear. The calvarium is intact. IMPRESSION: No acute intracranial abnormality.
--- NOTE | 2018-03-26 20:43 | RAD REPORT ---
EXAM DESCRIPTION: VAS - CP - 03/26/2018 8:37 pm CLINICAL HISTORY: TIA, CVA COMPARISON: 12/27/2016 TECHNIQUE: Real-time sonographic evaluation of both carotid systems was performed. Doppler interroga tion was performed with waveform tracing bilaterally. FINDINGS: The examination was very limited due to patient motion and coughing to throughout the stud y. Moderate hard plaque is seen right carotid bulb. Mild hard plaque is seen left carotid bulb. Hemodynamically significant carotid stenosis is not seen. Antegrade flow seen in both vertebral arteries. IMPRESSION: Very limited quality study due to motion and coughing during the study. Hard plaquing is seen in both carotid bulbs, greater on the right. No hemodynamically significant yasir nosis suspected. If further assessment is clinically needed, CTA or MRA of the neck vessels would be advised.
[2018-03-26] MEDS: CARVEDILOL 25 MG TAB PO SCH (22:10)
[2018-03-26] MEDS: clonazePAM 0.5 MG TAB PO SCH (22:11)
[2018-03-26] MEDS: POLYVINYL ALCOHOL 1.4% 15 ML EACH EYE SCH (22:15)
[2018-03-26] MEDS: MELATONIN 3 MG TABLET PO SCH (22:15)
[2018-03-26] MEDS: FORMULATION-R RECTAL 30GM PR SCH (22:15)
--- NOTE | 2018-03-27 00:42 | CON ---
Date of Consultation: 03/26/2018 Time: 1854. Reason For Consultation: Confusion. History: This is an 82-year-old lady with a history of dementia, [facility] patient, behavioral pr oblems, chronic atrial fibrillation, pacemaker placement, brought into the hospital with declining co ndition. Workup in the ER, hemoglobin 6.7, admitted, Xarelto was on hold, given GI bleed, guaiac-pos itive stools. She was noted to be more confused than prior with difficulty speaking per the family. CT scan of the brain, atrophy, chronic ischemia, unchanged from prior. She seems slightly better no w. She is speaking. She can tell me her name. She knows she is in the hospital. Swallow study blanc s demonstrate some aspiration. Consultation was requested. Past Medical History: As alluded to. Routine Medications: Gabapentin, Coreg, Depakote, Exelon, Klonopin, melatonin, meclizine, nitroglyce rin, omeprazole, metolazone, Ultram, Xarelto, and Norvasc. Allergies: CODEINE, MORPHINE. Social History: [facility] resident, requires assistance with most activities of daily living. Family History: Noncontributory. Review of Systems: General: Chronically ill. Eyes: Negative. Ears, nose, throat: Dysphagia. Cardiovascular: Hypertension, atrial fibrillation. Pulmonary: Dyspnea. GI: GI bleed. : Negative. Musculoskeletal: Arthralgias. Neurologic : As noted. Psychiatric: Behavioral difficulties. Endocrine: Negative. Hematologic: Anemia. Physical Examination: Vital Signs: Temperature 97, pulse 87, respirations 16, blood pressure 129/60. General: She is a pleasant elderly lady, lying in bed, somewhat tachypneic, otherwise in no distress . Heart: Irregularly irregular. Lungs: Poor air movement on pulmonary auscultation. Abdomen: Soft, bowel sounds present. Neurologic: Awake, alert, knows her name, knows she is in the hospital. Pupils, reactive. Ocular mo tion full. Arora full. Face symmetric. Tongue midline. Soft palate elevates bilaterally. Neck: Supple. Extremities: Reveals 4/5 weakness in all 4 extremities, likely secondary to effort. Sensation intac t to pain, reflexes 1/4. Toes are downgoing. Pertinent Labs: Hemoglobin up to 9.5, white count normal at 6.3, platelets 238, creatinine 1.2, BUN 96, down to 79, glucose 182. Impression: Altered mental status, chronic atrial fibrillation. Plan: We will repeat a CT scan of the brain in the morning. Check a carotid Doppler as well. At th is juncture given GI bleed, agree withholding systemic anticoagulation. Thank you for the consult. We will continue to follow with you. IRIS Voice ID: [id number] Report ID: [id number]
[2018-03-27 05:43] LABS: Absolute Lymphocytes (CBC) 0.4 K/uL (0.7-4.9); Absolute Monocytes 0.6 K/uL (0.1-1.3); Absolute Neutrophil 3.2 K/uL (1.8-8.0); Basophils % 0.3 % (0-1.3); Eosinophils % 0.8 % (0-4.4); Hematocrit 27.9 % (36.0-45.0); Lymphocytes % 10.2 % (15.3-44.8); MCH 26.9 pg (27.0-35.0); MCV 83.1 fL (80-100); MPV 8.1 fL (7.6-11.3); Monocytes % 13.9 % (3.3-12.3); RBC Red Blood Cell Count 3.36 M/uL (3.86-4.86)
[2018-03-27 06:22] LABS: Thyroid Stimulating Hormone 3.1 uIU/mL (0.34-5.60); Valproic Acid (Depakene) Level 29.2 ug/ml (50-100)
[2018-03-27 06:23] LABS: Potassium 2.3 mEq/L (3.6-5.0)
[2018-03-27] MEDS: NA CHLORIDE 0.9% 1,000 ML IV SCH ×3 (06:48→19:25)
[2018-03-27] MEDS: KCL 20 MEQ/100 mL IVPB 20 MEQ/100 ML BAG IV SCH ×3 (06:49→11:00)
[2018-03-27] MEDS: INSULIN -REGULAR HUMAN 50 UNIT/0.5 ML ML SQ SCH ×4 (07:30→21:00)
[2018-03-27] MEDS: CARVEDILOL 25 MG TAB PO SCH ×2 (08:38→21:41)
[2018-03-27] MEDS: BUMETANIDE 1 MG TABLET PO SCH ×3 (08:38→21:41)
[2018-03-27] MEDS: DIVALPROEX NA 125 MG CAP PO SCH (08:38)
[2018-03-27] MEDS: LOSARTAN POTASSIUM 50 MG TABLET PO SCH (08:38)
[2018-03-27] MEDS: GABAPENTIN 100 MG CAP PO SCH ×3 (08:39→21:41)
[2018-03-27] MEDS: SERTRALINE HCL 100 MG TAB PO SCH (08:39)
[2018-03-27] MEDS: METOLAZONE 5 MG TABLET PO SCH (08:39)
[2018-03-27] MEDS: AMLODIPINE 5 MG TAB PO SCH (08:39)
[2018-03-27] MEDS: HOME MED 1 EA UNK (Umeclidinium Bromide [Incruse Ellipta] 1 PUFF) IH SCH (09:00)
[2018-03-27] MEDS: POLYVINYL ALCOHOL 1.4% 15 ML EACH EYE SCH ×2 (09:40→21:42)
[2018-03-27] MEDS: PANTOPRAZOLE 40 MG INJ IVP SCH ×2 (09:41→21:43)
[2018-03-27] MEDS: FORMULATION-R RECTAL 30GM PR SCH ×2 (09:41→21:42)
[2018-03-27] MEDS: RIVASTIGMINE 4.6 MG/24 HR PATCH TD SCH (09:41)
--- NOTE | 2018-03-27 13:59 | EKG ---
Test Date: 2018-03-27 Test Time: 11:29:24 Dust Control Engineer: GABBY MEASUREMENT RESULTS: Intervals: Rate: 73 CT: QRSD: 194 QT: 532 QTc: 586 [place]: P: CT: QRS: -73 T: 98 INTERPRETIVE STATEMENTS: Atrial-sensed ventricular-paced rhythm tracking sinus rhythm with premature ventricular complexes Compared to ECG 03/25/2018 17:38:02 Atrial fibrillation no longer present Atrial-sensed ventricular-paced rhythm is now present Electronically Signed On 03-27-18 13:58:58 CDT by Niles Garcia
[2018-03-27] MEDS ORDERED: PROPOFOL 200 MG/20 ML VIAL IV ONE (14:18)
[2018-03-27] MEDS ORDERED: LIDOCAINE 1% MPF 5 ML VIAL ONE (14:18)
--- NOTE | 2018-03-27 16:39 | CON ---
Date of Consultation: 03/26/2018 Reason For Consultation: Severe anemia. History Of Present Illness: Ms. Mccoy is an 82-year-old female, who lives in a care home or [facility] facility. Unfortunately, she cannot give total history. Her family members, who is both h er daughter and son are on the bedside. Most of the history is also taken from them. What appears t hat in the intermediate home facility, her health has been deteriorated and it is a slowly progres sive deterioration over the last week. She became increasingly short of breath, failure to thrive, a nd also develop anorexia. Upon blood test, it was noted that hemoglobin is around 6, also increased BUN. As a result, she has been admitted to the hospital. There is no history of hematemesis, melena, hematochezia, odynophagia, dysphagia. She has nonspecifi c complaints of abdominal pain; however, history is not clear. Past Medical History: Hypertension, diabetes, coronary artery disease, chronic pain syndrome, diarrh ea, she has been also recently on antibiotic, history of TIA, cardiac disease with atrial fibrillatio n. Past Surgical History: Cataract, hysterectomy, appendix. Family History: Some form of GI cancer in her brother. Social History: At this time, no alcohol or tobacco; however, past history of tobacco and alcohol. Psychiatric History: Family thinks she might also have dementia. Allergies: REVIEWED IN THE CHART. Medications: Reviewed in the chart. Review of Systems: Information of review of systems is limited due to the patient's condition. Details are not availabl e, but what I gathered from the family members. General: She has weight loss. No fever or chills. Positive anorexia. GI: As elaborated above. Hepatologic: They do not know of any liver related issues. Musculoskeletal: In general, she has difficulty in ambulation. Details are unknown. Pulmonary: Positive shortness of breath. No cough or expectoration. Cardiac: She has coronary artery disease, however, they do not know any orthopnea or dyspnea. Neuropsychiatric: She might be developing dementia. Physical Examination: General: Elderly female, very frail. No other acute distress noted. Hemodynamic respiratory profil e within normal range. HEENT: Atraumatic, normocephalic. Bitemporal wasting. Facial wasting. Neck: Supple. No lymphadenopathy. Trachea central in position. Chest: Clear to auscultation and percussion. Cardiovascular: S1, S2 are irregular. No S3. No S4. Abdomen: Soft, scaphoid, nontender, and nondistended. Bowel sounds are present in all quadrants. N o succussion splash. No ascites. No hepatomegaly. No splenomegaly that I can palpate. Extremities: Upper and lower extremities are symmetrically wasted. Some joint prominence and deform ity also noted in the lower extremities. Dermatologic: Decreased skin turgor throughout, loss of subcutaneous pad of fat, multiple bruises in the upper extremities. Neurologic: She is alert and oriented x2. Memory, mentation, and judgment cannot be completely exam ined. She is moving all her extremities spontaneously without any focal deficit. Diagnostic Data: Reviewed and analyzed. Of importance, severely low hemoglobin and hematocrit. Impression, Plan And Recommendations: Ms. Mccoy is an elderly female with increased BUN and severel y low hemoglobin and hematocrit. The differential diagnosis in case will be GI bleeding namely with upper GI bleeding including possibility of bleeding, peptic ulcer disease, gastritis, hemorrhagic gas tritis, duodenal gastric ulcer, or erosive esophagitis. She needs to be stabilized. Transfusion needs to be given if needed. Her blood thinner needs to be stopped. Other general management and volume artificial flowers dyer will be of help in this case also. Empiric IV PPI will be favored. We are going to start her on full liquid diet and keep her n.p.o. after midnight. Given her situation, she will need an upper GI endoscopy; however, her risk profile is high, so her A SA will be 3. I have discussed with the patient and her family regarding the indications, contraindications, possib le complications, and alternatives of upper and lower GI endoscopy if needed along with the use of an esthesia including the risk of anesthesia including, but not limited to bleeding, perforation, tear, infection, and sepsis. She has good understanding. She is agreeable. EDSON/GALA Voice ID: [id number] Report ID: [id number]
[2018-03-27] MEDS: clonazePAM 0.5 MG TAB PO SCH ×2 (16:46→22:07)
--- NOTE | 2018-03-27 17:19 | PN ---
Date of Progress Note: 03/27/2018 Subjective: The patient is seen and examined. Chart reviewed and case discussed with Dr. Luis with GI. The patient is doing better, much more awake and alert. No acute distress. The patient going for EGD today. Son at the bedside. Treatment plan explained. All questions answered. Review of Systems: Negative except as above. Medications: Reviewed. Physical Examination: Vital Signs: Temperature 97.6, heart rate 72, blood pressure 118/59, respirations 20, O2 97% on 2 L via nasal cannula. General: Awake, alert, oriented x2, in no acute distress. Elderly female, obese, BMI 31.6. CV: S1, S2. Irregularly irregular. Peripheral pulses present. Respiratory: Moving air well bilaterally. No wheezing. Gastrointestinal: Abdomen is soft, nontender, and nondistended. Positive bowel sounds. Extremities: No clubbing, cyanosis, edema. Neurologic: Nonfocal. Laboratory Data: Sodium 147, potassium 2.3, chloride 100, CO2 36, BUN 15, creatinine 1.03, glucose 141, calcium 8.9. Valproic acid level 29.2. WBC 4.3, H and H 9 and 27.9, platelets 215, neutrophils 74%. Stool occult blood positive. Carotid artery ultrasound, limited quality study due to motion and coughing during the study. Heart plaquing seen in both carotid bulbs, greater on the right. No hemodynamically significant stenosis suspected. CT head repeat shows no acute intracranial abnormality. Modified barium swallow study, deep laryngeal penetration not cleared with nectar aspiration. No cough with thin liquid. Mild pharyngeal residue, vallecular and pyriform posterior wall with all consistencies delayed hyolaryngeal excursion. Assessment And Plan: An 82-year-old female with: 1. Acute gastrointestinal bleed, may be secondary to Xarelto which is on hold. The patient is going for EGD today. We will monitor H and H. The patient has been transfused. Continue IV PPI. 2. Acute blood loss anemia secondary to above, status post 2 units PRBCs. Continue to monitor H and H, transfuse as needed. 3. Atrial fibrillation, chronic. Xarelto is being held due to gastrointestinal bleed. 4. Alzheimer dementia without behavioral disturbance. 5. Hyperlipidemia, mixed. Continue medications. 6. History of transient ischemic attack. 7. History of psychosis. Mental status is much more improved. 8. Acute metabolic encephalopathy, improving, likely secondary to previous history of psychosis and general medical condition. 9. Gastrointestinal and deep venous thrombosis prophylaxis with PPI and SCDs. No chemical anticoagulation due to gastrointestinal bleed. 10. Hypokalemia. We will replace and monitor. 11. Dysphagia. Speech Therapy recommending honey thickened liquids and other strategies to avoid aspiration. We will continue aspiration precautions. Solids to be assessed after EGD. Plan: Follow up with EGD results. ALY Voice ID: [id number] Report ID: [id number] KELVIN
[2018-03-27] MEDS ORDERED: KCL 20 MEQ/100 mL IVPB 20 MEQ/100 ML BAG IV SCH (18:00)
[2018-03-27] MEDS: RIVAROXABAN 20 MG TABLET PO SCH (18:35)
[2018-03-27] MEDS: MELATONIN 3 MG TABLET PO SCH (21:42)
[2018-03-28] MEDS: NA CHLORIDE 0.9% 1,000 ML IV SCH ×2 (01:17→15:29)
--- NOTE | 2018-03-28 01:44 | OP ---
Date of Procedure: 03/27/2018 Surgeon: Daniel Piper MD Procedures Performed: 1.Esophagogastroduodenoscopy with biopsy from gastric body. 2.Administration of anesthesia by Department of Anesthesia. Indication: 1.See my dictation. 2.Anemia, suspected GI bleeding. Premedication: Per Anesthesia. Complexity: Moderate. Tolerance Of Sedation: Excellent. Procedure In Detail: The procedure, possible complications, and alternatives including, but not limi mark to the possibility of bleeding, perforation, tear, infection, sepsis, need for surgery, need for blood transfusion, and anesthesia-related problem were explained to the informed libertarian. Consent was obtained. The patient was placed in left lateral position. Through the anesthetized oropharyngeal a willy, scope was passed. Esophageal mucosa in the proximal, mid, and distal aspect appeared to be the normal range. EG junction was normal. However, there was a hiatal hernia noted at moderate size. I n addition to that, multiple scattered erosions noted in the stomach in addition to diffuse gastritis . No active bleeding was noted although. Duodenal bulb, duodenal angle, and duodenal part 2 appeared to be in the normal range. Having done the above procedure in a safe, diligent, and satisfactory manner, endoscope and rest of t he endoscopic accessories were removed. The patient's oropharyngeal area was cleaned out in a respec tful manner. The patient has been sent in excellent condition to postop recovery, from there to the floor. Impression: Erosive gastritis, hiatal hernia. Plan: 1.Await biopsy results. 2.Continue on proton pump inhibitor. 3.The patient will probably need colonoscopy; however, her general condition is to improve before it could be safely performed. She is encouraged to follow up in office in 2-3 weeks. Complications: None. The patient tolerated the procedure well. Disposition: As above. EDSON/GALA Voice ID: [id number] Report ID: [id number]
[2018-03-28] MEDS: KCL 20 MEQ/100 mL IVPB 20 MEQ/100 ML BAG IV SCH ×3 (03:09→08:43)
[2018-03-28 05:53] LABS: Absolute Lymphocytes (CBC) 0.5 K/uL (0.7-4.9); Absolute Monocytes 0.5 K/uL (0.1-1.3); Absolute Neutrophil 2.8 K/uL (1.8-8.0); Basophils % 0.6 % (0-1.3); Eosinophils % 1.7 % (0-4.4); Hematocrit 27.6 % (36.0-45.0); Lymphocytes % 12.1 % (15.3-44.8); MCH 27.4 pg (27.0-35.0); MCV 82.2 fL (80-100); MPV 8.1 fL (7.6-11.3); Monocytes % 13.5 % (3.3-12.3); RBC Red Blood Cell Count 3.36 M/uL (3.86-4.86)
[2018-03-28 06:04] LABS: Potassium 2.7 mEq/L (3.6-5.0)
[2018-03-28 07:29] LABS: Blood Morphology Comment NOTED (NOT SEEN); Platelet Estimate ADEQ; Polychromasia 2+; Urine White Blood Cell Casts OK
[2018-03-28] MEDS: INSULIN -REGULAR HUMAN 50 UNIT/0.5 ML ML SQ SCH ×3 (07:30→16:30)
[2018-03-28] MEDS: RIVASTIGMINE 4.6 MG/24 HR PATCH TD SCH (08:48)
[2018-03-28] MEDS: BUMETANIDE 1 MG TABLET PO SCH ×2 (08:48→14:00)
[2018-03-28] MEDS: AMLODIPINE 5 MG TAB PO SCH (08:51)
[2018-03-28] MEDS: LOSARTAN POTASSIUM 50 MG TABLET PO SCH (08:51)
[2018-03-28] MEDS: SERTRALINE HCL 100 MG TAB PO SCH (08:51)
[2018-03-28] MEDS: GABAPENTIN 100 MG CAP PO SCH ×2 (08:51→14:00)
[2018-03-28] MEDS: CARVEDILOL 25 MG TAB PO SCH (08:52)
[2018-03-28] MEDS: DIVALPROEX NA 125 MG CAP PO SCH (08:53)
[2018-03-28] MEDS: PANTOPRAZOLE 40 MG INJ IVP SCH (08:53)
[2018-03-28] MEDS: HOME MED 1 EA UNK (Umeclidinium Bromide [Incruse Ellipta] 1 PUFF) IH SCH (08:53)
[2018-03-28] MEDS: POLYVINYL ALCOHOL 1.4% 15 ML EACH EYE SCH (09:00)
[2018-03-28] MEDS: FORMULATION-R RECTAL 30GM PR SCH (09:00)
[2018-03-28] MEDS: METOLAZONE 5 MG TABLET PO SCH (11:24)
[2018-03-28 14:31] LABS: Magnesium 1.5 mg/dL (1.8-2.5)
[2018-03-28 14:41] LABS: Potassium 2.8 mEq/L (3.6-5.0)
[2018-03-28] MEDS: RIVAROXABAN 20 MG TABLET PO SCH (17:00)
[2018-03-28 17:20] VITALS: BP 112/57; TEMP 97.4
--- NOTE | 2018-03-29 05:15 | DS ---
Date of Discharge: 03/28/2018 Consultants: 1.Arnold Patel MD, with Neurology. 2.Daniel Piper MD with GI. Procedure: On 03/27/2008, EGD, which showed erosive gastritis, esophagitis, hiatal hernia. Admitting Diagnoses: 1.Gastrointestinal bleed. 2.Atrial fibrillation, chronic. 3.Dementia without behavioral disturbance. 4.Acute blood loss anemia. Discharge Diagnoses: 1.Acute gastrointestinal bleed. Esophagogastroduodenoscopy showing erosive gastritis and esophagiti s and hiatal hernia on PPI. 2.Acute blood loss anemia secondary to above, status post 2 units of packed red blood cells. 3.Atrial fibrillation, chronic, tolerating Xarelto. 4.Alzheimer's dementia without behavioral disturbance. 5.Hyperlipidemia. 6.History of transient ischemic attack. 7.History of psychosis, on multiple psychotropic medications. 8.Acute metabolic encephalopathy, resolved. 9.Hypokalemia, corrected. 10.Hypomagnesemia, replaced. 11.Dysphagia, on modified diet. Hospital Course: The patient is an 82-year-old female, who comes in with weakness, being pale, confu sed from the [facility]. The patient was found to be anemic. She received 2 units of PRBCs. Her hemoglobin improved. The patient's Xarelto was held due to the GI bleed. The patient was seen by GI , who performed EGD. The patient has no history of hiatal hernia. She was found to have erosive gas tritis and esophagitis. The patient was continued on IV PPI. The patient did well post EGD. She wa s able to tolerate her Xarelto after the procedure with no source of bleeding found. The patient did not have any further melenic stools. The patient did have multiple electrolyte abnormalities includ ing potassium magnesium, which was replaced. The patient's kidney function was slightly elevated wit h a creatinine of 1.43. With IV fluid hydration, creatinine improved. The patient did have some mil d elevation in troponin, however, no chest pain, thought to be secondary due to demand mismatch with low hemoglobin. The patient otherwise did well. She initially had some altered mental status and sh e was seen by Dr. Patel, who recommended repeat head CT. Initial head CT was negative as was the rep eat. The patient does have history of psychosis and is on multiple psychotropic medications, which w ere resumed. The patient was back to her baseline, was alert, talking, and answering questions appro priately. The patient was then cleared for discharge. She also had a carotid ultrasound, which show ed heart plaquing in both bulbs but no hemodynamically significant stenosis. The patient was then di scharged back to nursing facility in a fair condition. Diet: Heart healthy. Activity: Fall precautions. Followup: Follow up with primary care physician in 2-3 days. Follow up with neurologist, Dr. Patel, in 2 weeks. Follow up with GI, Dr. Piper, in 2 weeks. Return to ER for worsening condition. The patient will also need to follow up with her fruit farmworker to determine if Xarelto will be safe to continue in light of her GI bleed. At this time, she is tolerating the Xarelto without any recurren ce of her melenic stools. However, she has been cautioned to monitor for signs of any bleeding. Total time spent discharging the patient was 41 minutes. Discharge Physical Examination: General: Awake, alert, oriented, no acute distress, elderly female. CV: S1, S2. Irregularly irregular. Peripheral pulses present. Respiratory: Moving air well bilaterally. Abdomen: Soft, nontender, nondistended. Positive bowel sounds. Extremities: No clubbing, cyanosis, or edema. Neurologic: Nonfocal. SA/MODL Voice ID: [id number] Report ID: [id number]
== END 2018-03-28 19:00 | DRG 377 ==
LOC: ER 17:09 → ERHOLD 18:49 → 4TH 19:48 → 2ND 20:00
PROVIDERS: ADMIT Physician Assistant; ATTEND Internal Medicine
PROC: 30233N1 Transfusion of Nonautologous Red Blood Cells into Peripheral Vein, Percutaneous Approach (ICD-10-PCS; 2018-03-25)
PROC: 0DB68ZX Excision of Stomach, Via Natural or Artificial Opening Endoscopic, Diagnostic (ICD-10-PCS; principal; 2018-03-27 12:30)
DX: K92.1 Melena (principal); G93.41 Metabolic encephalopathy; D62 Acute posthemorrhagic anemia; K29.00 Acute gastritis without bleeding; K44.9 Diaphragmatic hernia without obstruction or gangrene; K20.9 Esophagitis, unspecified; Z95.810 Presence of automatic (implantable) cardiac defibrillator; I48.2 Chronic atrial fibrillation; G30.9 Alzheimer's disease, unspecified; F02.80 Dementia in other diseases classified elsewhere, unspecified severity, without behavioral disturbance, psychotic disturbance, mood disturbance, and anxiety; E78.5 Hyperlipidemia, unspecified; Z86.73 Personal history of transient ischemic attack (TIA), and cerebral infarction without residual deficits; E87.6 Hypokalemia; E83.42 Hypomagnesemia; R13.10 Dysphagia, unspecified; Z79.01 Long term (current) use of anticoagulants; I10 Essential (primary) hypertension; I25.10 Atherosclerotic heart disease of native coronary artery without angina pectoris; Z96.653 Presence of artificial knee joint, bilateral
CPT/HCPCS: 36415; 70450; 71045; 74176; 74230; 80048; 80053; 80076; 80164; 82272; 82550; 82553; 82607; 82962; 83036; 83690; 83735; 83880; 84132; 84443; 84484; 85025; 85610; 85730; 86850; 86900; 86901; 88305; 88312; 93005; 93880; 96365; 96375; 99285; C9113; J1720; J1940; J7030; P9016